=== PATIENT | female | born 1995 | race Caucasian/White ===

== ENCOUNTER 2017-09-09 11:15 | Inpatient (IN) | payer MEDICAID ==
[~2017-09-09] VITALS: Ht 139.7 cm; Wt 73.9 kg
[~2017-09-09 11:15] MED LIST: CEPH-443 PO; NPH10OT LEFT EAR
[2017-09-09 11:39] VITALS: BP 137/74; PULSE 87; Ht 139.7 cm; Wt 73.9 kg
[2017-09-09] MEDS ORDERED: LACTATED RINGER'S 1,000 ML IV SCH (11:40)
[2017-09-09] MEDS ORDERED: LIDOCAINE 1% (MPF) 30 ML INJ INJ PRN (12:00)
[2017-09-09] MEDS ORDERED: OXYTOCIN 30 UNITS/LR 500 ML IV SCH ×2 (12:00)
[2017-09-09] MEDS ORDERED: IBUPROFEN 600 MG TAB PO PRN (12:00)
[2017-09-09] MEDS ORDERED: LACTATED RINGER'S 1,000 ML IV PRN (12:00)
[2017-09-09] MEDS ORDERED: BUTORPHANOL 2 MG INJ IV PRN (12:00)
[2017-09-09] MEDS ORDERED: AMPICILLIN 2 GM/NS (PMX) 100 ML IV ONE (12:00)
[2017-09-09] MEDS ORDERED: MISOPROSTOL 200 MCG TAB PR PRN ×2 (12:00→21:00)
[2017-09-09] MEDS ORDERED: METHYLERGONOVINE 0.2 MG INJ IM PRN ×2 (12:00→21:00)
[2017-09-09] MEDS ORDERED: OXYTOCIN 30 UNITS/LR 500 ML IV PRN ×2 (12:00→21:00)
[2017-09-09] MEDS ORDERED: CARBOPROST 250 MCG INJ IM PRN ×2 (12:00→21:00)
[2017-09-09 12:26] LABS: BASOPHILS % 0.2 % (0.0-2.0); EOSINOPHILS % 0.2 % (0.0-7.0); HEMATOCRIT 41.2 % (37.0-47.0); HEMOGLOBIN 13.8 g/dl (12.0-16.0); LYMPHOCYTES # 1.5 10^3/ul (0.8-2.9); LYMPHOCYTES % 10.7 % (15.0-51.0); MEAN CORPUSCULAR HEMOGLOBIN 27.4 pg (29.0-33.0); MEAN CORPUSCULAR HGB CONC 33.5 g/dl (32.0-37.0); MEAN CORPUSCULAR VOLUME 81.7 fl (82.0-101.0); MEAN PLATELET VOLUME 12.2 fl (7.4-10.4); MONOCYTE # 0.7 10^3/ul (0.3-0.9); MONOCYTES % 4.8 % (0.0-11.0); NEUTROPHIL # 11.2 10^3/ul (1.6-7.5); NUCLEATED RED BLOOD CELLS% 0.3 /100WBC (0.0-0.0); PLATELET COUNT 230 10^3/UL (140-415); RED BLOOD COUNT 5.04 10^6/ul (4.20-5.40); RED CELL DISTRIBUTION WIDTH 16.8 % (11.5-14.5); WHITE BLOOD COUNT 13.5 10^3/ul (4.8-10.8)
[2017-09-09 12:37] LABS: INR 0.83; PROTIME 11.4 Sec (12.2-14.2); PT RATIO 0.9
[2017-09-09 12:38] LABS: PARTIAL THROMBOPLASTIN TIME 28.6 Sec (25.0-35.0)
[2017-09-09] MEDS ORDERED: AMPICILLIN 1 GM/NS (PMX) 50 ML IV SCH (16:00)
[2017-09-09] MEDS ORDERED: MINERAL OIL LIGHT 10 ML VIAL TOP PRN (17:00)
--- NOTE | 2017-09-09 18:20 | HP ---
Date/Time of Note Date/Time of Note DATE: 09/09/17 TIME: 18:18 OB - History Hx of Present Free Text/Dictation Complaining of onset of labor pain started about 3:00 in the morning on 2016 Last Menstrual Period: Dec 09, 2016 Estimated Due Date: Sep 15, 2017 : 1 Para: 0 Care: Good Care Ultrasounds: Normal mid trimester US Medical Complications: None Past Family/Social History * Past Medical, Surgical, Family and Obstetric Histories reviewed from chart. Blood Type: O+ Rubella: immune RPR/VDRL: Negative GBS Status: Negative HBsAG: Negative OB Admission Exam Vital Signs Vital Signs Vital Signs Date Time Temp Pulse Resp B/P Pulse Ox O2 Delivery O2 Flow Rate FiO2 09/09/17 11:39 98.2 87 137/74 Room Air Physical Exam HEENT: WNL Heart: Rhythm Normal Lungs: Clear, Equal Abdomen: WNL Extremities: Normal Reflexes: Normal Cervical Dilatation: 6cm Effacement: 100% Station: -2 Membranes: Intact Heart Rate: 140's Accelerations: Accelerations Present Decelerations: No Decelerations Varibility: Marked Contractions on Admission: < 5 Minutes Apart Date/Time Contractions Began: September 09, 2017 at 3:00 in the morning Frequency of Contractions: Every 3 minutes Duration: Over 60 seconds Intensity: Moderate Last 72 hours Lab Results CBC & BMP 09/09/17 11:50 OB Assessment/Plan Reason for admission: active labor Other Assessment: Term gestation Other plan: Proceed with spontaneous labor Vaginal delivery anticipated IZAIAH FERNANDO MD Sep 09, 2017 18:20
--- NOTE | 2017-09-09 18:22 | LDN ---
Date/Time of Note Date/Time of Note DATE: 09/09/17 TIME: 18:20 Delivery Summary Normal spontaneous vaginal delivery of a viable over intact perineum Weeks of Gestation 39 weeks Placenta Delivered: Spontaneously, Intact & Complete Meconium: none Episiotomy: No Perineal laceration: 0 Laceration repair: Small hymenal laceration was reapproximated using 2-0 Vicryl on SH needle Anesthesia type: Local Estimated blood loss: 300 Sponge & Needle done & correct: Yes All needle counts correct: Yes Any foreign bodies felt in the: No Problems: Delivery Information Sex Infant Sex: male Apgars 1 Minute: 9 5 Minute: 9 Suctioning Nose & mouth suctioned at donovan: Yes Delee suction performed: No Umbilical Cord Umbilical cord with: 3 Vessels Cord presentations: no nuchal cord Cord Blood was obtained: Yes Mother & Baby Disposition Disposition Mom & Baby to Maternity; Good: Yes (Mother and baby were recovered in good condition) Mom transferred to: Other (Maternity) Baby to NICU: No IZAIAH FERNANDO MD Sep 09, 2017 18:22
[2017-09-09 21:00] VITALS: BP 135/71; PULSE 81; RESP 17
[2017-09-09] MEDS ORDERED: BENZOCAINE 20% 56 ML SPRAY TOP PRN (21:00)
[2017-09-09] MEDS ORDERED: DIBUCAINE 1% 30 GM OINT PR PRN (21:00)
[2017-09-09] MEDS ORDERED: HYDROCODONE/APAP (5/325) TAB PO PRN (21:00)
[2017-09-09] MEDS ORDERED: LANOLIN 7 GM TUBE TOP PRN (21:00)
[2017-09-09] MEDS ORDERED: ZOLPIDEM 5 MG TAB PO PRN (21:00)
[2017-09-09] MEDS ORDERED: WITCH HAZEL/GLYCERIN PAD PR PRN (21:00)
[2017-09-09] MEDS: HYDROCODONE/APAP (5/325) TAB PO PRN (22:25)
[2017-09-09] MEDS: SENNA/DOCUSATE NA (8.6MG/50MG) TAB PO SCH (22:25)
[2017-09-09] MEDS: MAGNESIUM HYDROXIDE 30ML CUP PO SCH (22:25)
[2017-09-09] MEDS: LACTATED RINGER'S 1,000 ML IV* SCH (22:27)
[2017-09-10] MEDS: IBUPROFEN 600 MG TAB PO SCH ×4 (00:10→17:25)
[2017-09-10 00:30] VITALS: BP 140/70; PULSE 94; RESP 17
[2017-09-10 04:00] VITALS: BP 108/55; PULSE 80; RESP 17
[2017-09-10] MEDS: LACTATED RINGER'S 1,000 ML IV* SCH ×3 (04:43→20:43)
[2017-09-10 08:00] VITALS: BP 115/59; PULSE 82; RESP 18
[2017-09-10 08:09] LABS: ABNORMAL IP MESSAGE 1; BASOPHILS % 0.2 % (0.0-2.0); EOSINOPHILS # 0.1 10^3/ul (0.0-0.5); EOSINOPHILS % 0.2 % (0.0-7.0); HEMATOCRIT 32.4 % (37.0-47.0); HEMOGLOBIN 10.3 g/dl (12.0-16.0); LYMPHOCYTES # 2.7 10^3/ul (0.8-2.9); MEAN CORPUSCULAR HEMOGLOBIN 26.5 pg (29.0-33.0); MEAN CORPUSCULAR HGB CONC 31.8 g/dl (32.0-37.0); MEAN CORPUSCULAR VOLUME 83.5 fl (82.0-101.0); MEAN PLATELET VOLUME 11.8 fl (7.4-10.4); MONOCYTE # 1.7 10^3/ul (0.3-0.9); MONOCYTES % 7.5 % (0.0-11.0); NEUTROPHIL # 17.7 10^3/ul (1.6-7.5); NUCLEATED RED BLOOD CELLS% 0.1 /100WBC (0.0-0.0); PLATELET COUNT 198 10^3/UL (140-415); RED BLOOD COUNT 3.88 10^6/ul (4.20-5.40); RED CELL DISTRIBUTION WIDTH 17.4 % (11.5-14.5); WHITE BLOOD COUNT 22.4 10^3/ul (4.8-10.8)
[2017-09-10 08:11] LABS: POSITIVE DIFF @See below
[2017-09-10] MEDS: SENNA/DOCUSATE NA (8.6MG/50MG) TAB PO SCH ×2 (08:14→20:30)
[2017-09-10] MEDS: MAGNESIUM HYDROXIDE 30ML CUP PO SCH ×2 (08:14→20:30)
[2017-09-10] MEDS: HYDROCODONE/APAP (5/325) TAB PO PRN ×2 (08:15→19:34)
[2017-09-10] MEDS ORDERED: INFLUENZA VIRUS VACCINE 0.5 ML (DISPENSING) IM* ONE (12:30)
[2017-09-10] MEDS: CEPHALEXIN 500 MG CAP PO SCH ×2 (12:52→17:24)
[2017-09-10 16:15] VITALS: BP 109/56; PULSE 77; RESP 18
[2017-09-10 19:30] VITALS: BP 119/59; PULSE 73; RESP 20
--- NOTE | 2017-09-10 20:47 | DS ---
Date/Time of Note Date/Time of Note Home the following day course of the DATE: 09/10/17 TIME: 20:45 Obstetrical Discharge Record Final Diagnosis Final Diagnosis: Term delivered Other Final Diagnosis Status post vaginal delivery Vaginal Delivery Obstetrical Delivery: Spontaneous, Laceration, Repaired Condition on Discharge Physical Assessment Last Vitals: See nurse's notes Voiding: Yes Bowel Movement: Yes Breast: Soft, non-tender, Filling Fundus: Firm Abdomen and Incision: Soft bowel sounds positive fundus is firm at U Episiotomy: Not applicable Calf Tenderness: No Patient Condition: Good IZAIAH FERNANDO MD Sep 10, 2017 20:47
--- NOTE | 2017-09-10 20:49 | PD.PPDC ---
[employer] Discharge Instruction Provider Information Physician Information 22-year-old female had vaginal delivery Diagnosis Final Diagnosis: Status post vaginal delivery Condition Patient Condition: Good Diet Diet: Resume Regular Diet Activity/Restrictions Activity: Normal Activity May Shower Restrictions: Nothing in the Vagina Return to Work or School: Oct 24, 2017 Follow-up Follow-up with Physician: 4, Week/Weeks Return to clinic for OB Instructions: Breast Tenderness Depression Comment: Pelvic wrist for 6 weeks IZAIAH FERNANDO MD Sep 10, 2017 20:49
[2017-09-10] MEDS ORDERED: IBUP-1542 PO (20:50)
[2017-09-11] MEDS: CEPHALEXIN 500 MG CAP PO SCH ×4 (01:26→17:59)
[2017-09-11] MEDS: IBUPROFEN 600 MG TAB PO SCH ×4 (01:27→17:59)
[2017-09-11] MEDS: LACTATED RINGER'S 1,000 ML IV* SCH ×2 (03:56→20:07)
[2017-09-11 04:00] VITALS: BP 107/58; PULSE 80; RESP 19
[2017-09-11 08:10] VITALS: BP 119/56; PULSE 76; RESP 14
[2017-09-11] MEDS: SENNA/DOCUSATE NA (8.6MG/50MG) TAB PO SCH (09:00)
[2017-09-11] MEDS ORDERED: MEASLES,MUMPS,RUBELLA VACCINE INJ SC* ONE (09:00)
[2017-09-11] MEDS ORDERED: VARICELLA VACCINE LIVE/PF 1,350 UNIT/0.5 ML ML SC* ONE (09:00)
[2017-09-11] MEDS: MAGNESIUM HYDROXIDE 30ML CUP PO SCH (09:00)
[2017-09-11] MEDS ORDERED: DIPHTH/TET/ACEL PERTUSS (ADULT) 0.5 ML VIAL IM* ONE (09:00)
[2017-09-11] MEDS: HYDROCODONE/APAP (5/325) TAB PO PRN (09:30)
--- NOTE | 2017-09-11 12:25 | QN ---
Documentation Comment Patient with C/O suprapubic and groin pain; She claims she has problem walking Physical therapy ordered vaginal exam is unremarkable : No foreign object felt and perineum not swollen CBC still pending will D/C home after PT evaluation and recommendation IZAIAH FERNANDO MD Sep 11, 2017 12:24
[2017-09-11 12:27] LABS: BASOPHIL # 0.1 10^3/ul (0.0-0.1); BASOPHILS % 0.4 % (0.0-2.0); EOSINOPHILS # 0.1 10^3/ul (0.0-0.5); EOSINOPHILS % 0.9 % (0.0-7.0); HEMATOCRIT 31.2 % (37.0-47.0); HEMOGLOBIN 10.3 g/dl (12.0-16.0); LYMPHOCYTES # 2.5 10^3/ul (0.8-2.9); LYMPHOCYTES % 17.4 % (15.0-51.0); MEAN CORPUSCULAR HEMOGLOBIN 27.9 pg (29.0-33.0); MEAN CORPUSCULAR VOLUME 84.6 fl (82.0-101.0); MEAN PLATELET VOLUME 11.7 fl (7.4-10.4); MONOCYTE # 0.8 10^3/ul (0.3-0.9); MONOCYTES % 5.3 % (0.0-11.0); NEUTROPHIL # 10.9 10^3/ul (1.6-7.5); NUCLEATED RED BLOOD CELLS% 0.1 /100WBC (0.0-0.0); PLATELET COUNT 216 10^3/UL (140-415); RED BLOOD COUNT 3.69 10^6/ul (4.20-5.40); RED CELL DISTRIBUTION WIDTH 17.4 % (11.5-14.5); WHITE BLOOD COUNT 14.5 10^3/ul (4.8-10.8)
[2017-09-11 16:37] VITALS: BP 119/57; PULSE 78; RESP 16
== END 2017-09-11 20:10 | disposition home or self-care (01) | DRG 775 ==
LOC: OBT 11:15 → L-D 11:16 → OBT 11:20 → L-D 14:56 → PP1 20:30
PROVIDERS: ADMIT Obstetrics & Gynecology; ATTEND Obstetrics & Gynecology
PROC: 10E0XZZ Delivery of Products of Conception, External Approach (ICD-10-PCS; principal; 2017-09-10)
DX: O80 Encounter for full-term uncomplicated delivery (principal); Z37.0 Single live birth; Z3A.39 39 weeks gestation of pregnancy
CPT/HCPCS: 85025; 85610; 85730; 86592; 86703; 86762; 86900; 86901; 87340; 90686; 90715; 90716; 97161; G0463; J0290; J0595; J2590; J7120

== ENCOUNTER 2018-07-30 04:30 | Emergency (ER) | END 2018-07-30 08:51 | disposition home or self-care (01) ==